=== PATIENT | female | born 1960 | race Caucasian/White ===

== ENCOUNTER 2019-10-10 15:33 | Inpatient (IN) | payer MEDICARE ==
[2019-10-10] VITALS (14 sets, daily range): BP systolic 104–150; BP diastolic 41–91
[~2019-10-10] VITALS: Ht 160 cm; Wt 66.8 kg
[2019-10-10] MEDS ORDERED: KLONOPIN1 MG PO (16:00)
[2019-10-10] MEDS ORDERED: MORPHINE SULFAT30 M4 PO (16:00)
[2019-10-10] MEDS ORDERED: ROXICODONE30 MG PO (16:01)
[2019-10-10] MEDS ORDERED: VALIUM10 MG PO (16:01)
[2019-10-10 17:25] LABS: BILIRUBIN NEGATIVE (NEGATIVE); GLUCOSE NEGATIVE (NEGATIVE); KETONE SMALL mg/dL (NEGATIVE); NITRITE NEGATIVE (NEGATIVE); UROBILINOGEN NORMAL (NORMAL)
[2019-10-10 17:32] LABS: BACTERIA FEW /hpf (NEGATIVE); EPITHELIAL CELLS 0-5 /hpf (0-5); RED CELLS - URINE 0-5 /hpf (0-5); WHITE CELLS - URINE 0-5 /hpf (NEGATIVE)
[2019-10-10 17:36] LABS: UDS - AMPHET NEGATIVE QUAL (NEGATIVE); UDS - BARB NEGATIVE QUAL (NEGATIVE); UDS - BENZO POSITIVE QUAL (NEGATIVE); UDS - COCAINE NEGATIVE QUAL (NEGATIVE); UDS - OPIATE POSITIVE QUAL (NEGATIVE); UDS - PCP NEGATIVE QUAL (NEGATIVE); UDS - THC NEGATIVE QUAL (NEGATIVE)
[2019-10-10 17:55] LABS: BASOPHILS 0.2 % (0-2); EOSINOPHILS 1.6 % (0-7); HEMOGLOBIN 10.1 g/dL (12-16); IMMATURE GRANULOCYTES 0.2 % (0-5); LYMPHOCYTES 10.6 % (15-50); MCH 24.1 pg (26.0-34.0); MCHC 30.6 g/dL (31.0-37.0); MCV 78.8 fL (80.0-100.0); MEAN PLATELET VOLUME 9.1 fL (7.4-10.4); MONOCYTES 6.8 % (2-11); NEUTROPHILS 80.6 % (40-80); PLATELET COUNT 213 10x3/uL (130-400); RBC 4.19 10x6/uL (4.00-5.40); RDW 17.9 % (11.5-14.5); WBC 9.8 10x3/uL (4.8-10.8)
[2019-10-10 18:06] LABS: CALC OSMOLALITY 284 mosm/kg (275-300); CALCIUM 8.3 mg/dL (8.5-10.1); CARBON DIOXIDE 24.3 mmol/L (21.0-32.0); CHLORIDE - SERUM 111 mmol/L (98-107); CREATININE - SERUM 0.7 mg/dL (0.6-1.3); GLUCOSE 121 mg/dL (74-106); POTASSIUM - SERUM 3.5 mmol/L (3.5-5.1); SODIUM 142 mmol/L (136-145); UREA NITROGEN 14 mg/dL (7-18); eGFR NON AFRICAN AMERICAN 90 mL/min (90-120)
[2019-10-10 18:11] LABS: INR 1.11 (0.85-1.17); PROTIME 14.2 SECONDS (11.6-15.0)
[2019-10-10 18:12] LABS: APTT 30.6 SECONDS (22.8-39.4)
[2019-10-10 18:19] LABS: ALKALINE PHOSPHATASE 74 U/L (30-120); ALT (SGPT) 21 U/L (10-68); BILIRUBIN - TOTAL 0.26 mg/dL (0.2-1.3); CKMB 5.5 U/L (0.0-3.6); CREATINE KINASE 197 UL (21-215); MAGNESIUM - SERUM 1.4 mg/dL (1.8-2.4); PROTEIN - SERUM 6.1 g/dL (6.4-8.2); THYROID STIMULATING HORMONE 0.41 uIU/mL (0.36-3.74); TROPONIN-I < 0.017 ng/mL (0.000-0.060)
--- NOTE | 2019-10-10 22:05 | NUR ---
PT WANTING TO LEAVE. STATES "MY SON CAN COME GET ME"- EXPLAINED TO PATIENT WE WOULD HAVE TO TRY HER WITHOUT HER NARCAN DRIP AND SEE. PT VERBALIZES UNDER STANDING. NARCAN TURNED OFF. WILL MONITOR.
[2019-10-10 23:00] LABS: CKMB 5.7 U/L (0.0-3.6); TROPONIN-I < 0.017 ng/mL (0.000-0.060)
[2019-10-10 23:01] LABS: CREATINE KINASE 257 UL (21-215)
--- NOTE | 2019-10-11 00:08 | NUR ---
SWELLING NOTED TO LEFT FOREARM IV SITE, IV REMOVED, TV TO LEFT HAND WAS FLUSHED AND WAS FOUND TO NOT BE GOOD AT THIS TIME, PT REQUESTING TO NOT HAVE ANOTHER IV STARTED
[2019-10-11 00:10] VITALS: BP 125/77
--- NOTE | 2019-10-11 01:05 | NUR ---
REC'D PATIENT FROM ER VIA WHEELCHAIR. PATIENT IS ALERT AND ORIENTED X4. PATIENT ABLE TO AMBULATE FROM WHEELCHAIR TO THE BED WITHOUT DIFFICULTY. STARTED IV FLUIDS AND EXPLAINED TO THE PATIENT. ALSO PLACED PATIENT ON CONTINUOUS PULSE OX AND EXPLAINED USE. PATIENT VERBALIZED UNDERSTANDING. COMPLETED ADMISSION. GAVE PATIENT A SNACK AND WATER PER HER REQUEST. PATIENT DENIES OTHER NEEDS AT THIS TIME. BED IN LOWEST POSITION, CALL LIGHT WITHIN REACH, AND BED ALARM ON. ENCOURAGED THE PATIENT TO CALL IF SHE HAS NEEDS. WILL CONTINUE TO MONITOR.
[2019-10-11 01:15] VITALS: BP 112/62; Ht 160 cm; Wt 66.8 kg
[2019-10-11 04:00] VITALS: BP 115/71
[2019-10-11 04:52] LABS: BASOPHILS 0.4 % (0-2); EOSINOPHILS 5.1 % (0-7); HEMATOCRIT 28.9 % (36.0-48.0); HEMOGLOBIN 8.8 g/dL (12-16); IMMATURE GRANULOCYTES 0.1 % (0-5); LYMPHOCYTES 37.8 % (15-50); MCH 23.9 pg (26.0-34.0); MCHC 30.4 g/dL (31.0-37.0); MCV 78.5 fL (80.0-100.0); MEAN PLATELET VOLUME 9.2 fL (7.4-10.4); MONOCYTES 11.2 % (2-11); NEUTROPHILS 45.4 % (40-80); PLATELET COUNT 220 10x3/uL (130-400); RBC 3.68 10x6/uL (4.00-5.40); RDW 17.9 % (11.5-14.5); WBC 7.8 10x3/uL (4.8-10.8)
[2019-10-11 05:13] LABS: ALBUMIN 2.6 g/dL (3.4-5.0); ALKALINE PHOSPHATASE 61 U/L (30-120); ALT (SGPT) 17 U/L (10-68); CALC OSMOLALITY 285 mosm/kg (275-300); CALCIUM 7.8 mg/dL (8.5-10.1); CHLORIDE - SERUM 111 mmol/L (98-107); CKMB 4.9 U/L (0.0-3.6); CREATINE KINASE 269 UL (21-215); CREATININE - SERUM 0.7 mg/dL (0.6-1.3); GLUCOSE 96 mg/dL (74-106); MAGNESIUM - SERUM 1.5 mg/dL (1.8-2.4); PHOSPHOROUS 2.7 mg/dL (2.5-4.9); POTASSIUM - SERUM 3.3 mmol/L (3.5-5.1); PROTEIN - SERUM 5.6 g/dL (6.4-8.2); SODIUM 144 mmol/L (136-145); UREA NITROGEN 11 mg/dL (7-18); eGFR NON AFRICAN AMERICAN 90 mL/min (90-120)
[2019-10-11 05:15] LABS: TROPONIN-I < 0.017 ng/mL (0.000-0.060)
[2019-10-11 09:13] VITALS: BP 119/68
[2019-10-11 13:28] VITALS: BP 116/75
== END 2019-10-11 16:08 | disposition home or self-care (01) | DRG 918 ==
LOC: D.ER 15:33 → D.EDHOLD 20:04 → D.ER 23:51 → OBSVTIME 23:52 → D.EDHOLD 23:52 → D.MS 23:53
PROVIDERS: Family Medicine; ADMIT Family Medicine; ATTEND Family Medicine
DX: T40.2X1A Poisoning by other opioids, accidental (unintentional), initial encounter (principal); R41.82 Altered mental status, unspecified; T42.4X1A Poisoning by benzodiazepines, accidental (unintentional), initial encounter; I10 Essential (primary) hypertension; S90.822A Blister (nonthermal), left foot, initial encounter; X58.XXXA Exposure to other specified factors, initial encounter